=== PATIENT | male | born 1995 | race Caucasian/White ===

== ENCOUNTER 2022-01-28 02:55 | Emergency (ER) | payer OTHER ==
[2022-01-28] MEDS ORDERED: ONDANSETRON *ODT* 4 MG TABLET SL ONE (03:35)
[2022-01-28] MEDS ORDERED: ONDANSETRON *ODT* 4 MG TABLET ONE (03:36)
[2022-01-28 03:47] VITALS: BP 133/82; PULSE 102; RESP 18; TEMP 98.3; BMI 25.8
[2022-01-28] MEDS ORDERED: IBUPROFEN 600 MG TABLET (FP) PO ONE ×3 (04:48→05:06)
== END 2022-01-28 05:08 | disposition home or self-care (01) ==
LOC: JER 02:55
DX: S00.03XA Contusion of scalp, initial encounter (principal); S92.352A Displaced fracture of fifth metatarsal bone, left foot, initial encounter for closed fracture; M25.572 Pain in left ankle and joints of left foot; V00.841A Fall from standing electric scooter, initial encounter
CPT/HCPCS: 70450-TC; 72125-TC; 73610-TC-LT-FY; 73630-TC-LT; 99285-25; Q0162